=== PATIENT | male | born 1955 | race Caucasian/White ===

== ENCOUNTER 2017-09-02 11:55 | Emergency (ER) | payer SELFPAY ==
[~2017-09-02] VITALS: Ht 198.1 cm; Wt 100.0 kg
[2017-09-02 14:42] LABS: BASOPHILS # (AUTO) 0.02 x10^3/uL (0-0.1); BASOPHILS % (AUTO) 0 % (0-1); EOSINOPHILS # (AUTO) 0.16 x10^3/uL (0-0.4); EOSINOPHILS % (AUTO) 2 % (1-7); LYMPHOCYTES # (AUTO) 1.37 x10^3/uL (1-3.4); LYMPHOCYTES % (AUTO) 16 % (22-44); MD NO; MEAN CORPUSCULAR HEMOGLOBIN 31.1 pg (27.5-34.5); MEAN CORPUSCULAR HGB CONC 33.5 g/dL (33.2-36.2); MEAN CORPUSCULAR VOLUME 92.8 fL (81-97); MONOCYTES # (AUTO) 0.48 x10^3/uL (0.2-0.8); MONOCYTES % (AUTO) 6 % (2-9); NEUTROPHILS % (AUTO) 76 % (42-75); PLATELET COUNT 371 x10^3/uL (130-400); RED BLOOD COUNT 4.51 x10^6/uL (4.38-5.82); RED CELL DISTRIBUTION WIDTH 13.5 % (9.4-14.8)
[2017-09-02 14:55] LABS: ALANINE AMINOTRANSFERASE 21 U/L (12-78); ALBUMIN 3.4 g/dL (3.4-5.0); ANION GAP 6 mmol/L (5-15); CALCIUM 8.3 mg/dL (8.5-10.1); CHLORIDE 107 mmol/L (98-107); CREATININE 1.49 mg/dL (0.7-1.3)
[2017-09-02 15:00] LABS: ALKALINE PHOSPHATASE 90 U/L (45-117); BILIRUBIN,TOTAL 0.2 mg/dL (0.2-1.0); TOTAL PROTEIN 6.8 g/dL (6.4-8.2); TROPONIN I < 0.015 ng/mL (0.000-0.045)
[2017-09-02 15:05] LABS: INTERNATIONAL NORMALIZED RATIO 0.99 (0.93-1.1); PROTHROMBIN TIME 10.3 Seconds (9.6-11.5)
[2017-09-02 15:07] VITALS: BP 138/88
[2017-09-02 15:25] LABS: MICROSCOPIC NOT IND
[2017-09-02 15:32] LABS: CULTURE INDICATED? NO
[2017-09-02 15:38] LABS: AMPHETAMINE SCREEN, URINE Positive (Negative); BARBITURATE SCREEN, URINE Negative (Negative); BENZODIAZEPINE SCREEN, URINE Negative (Negative); CANNABINOID SCREEN, URINE Negative (Negative); COCAINE SCREEN, URINE Negative (Negative); METHADONE SCREEN, URINE Negative (Negative); OPIATE SCREEN, URINE Negative (Negative)
== END 2017-09-02 17:02 | disposition home or self-care (01) ==
LOC: ED 16:04
DX: R53.1 Weakness (principal); I10 Essential (primary) hypertension; Z79.899 Other long term (current) drug therapy; Z86.73 Personal history of transient ischemic attack (TIA), and cerebral infarction without residual deficits
CPT/HCPCS: 36415; 70450; 71045; 80053; 80307; 81003; 83605; 84484; 85025; 85610; 93005; 99285

== ENCOUNTER 2017-12-02 12:35 | Emergency (ER) | payer SELFPAY ==
[~2017-12-02] VITALS: Ht 198.1 cm; Wt 99.0 kg
[~2017-12-02 12:35] MED LIST: CARB200T4 PO
[2017-12-02 12:48] VITALS: BP 177/107
[2017-12-02] MEDS ORDERED: LISI-170 PO (12:54)
[2017-12-02] MEDS ORDERED: AMLO5TAB2 PO (12:54)
[2017-12-02 13:45] LABS: MEAN CORPUSCULAR HEMOGLOBIN 31.2 pg (27.5-34.5); MEAN CORPUSCULAR HGB CONC 33.8 g/dL (33.2-36.2); MEAN CORPUSCULAR VOLUME 92.3 fL (81-97); MEAN PLATELET VOLUME 7.2 fL (7.4-10.4); PLATELET COUNT 275 x10^3/uL (130-400); RED BLOOD COUNT 4.46 x10^6/uL (4.38-5.82); RED CELL DISTRIBUTION WIDTH 14.3 % (9.4-14.8)
[2017-12-02 13:46] LABS: BASOPHILS # (AUTO) 0.04 x10^3/uL (0-0.1); BASOPHILS % (AUTO) 1 % (0-1); EOSINOPHILS # (AUTO) 0.22 x10^3/uL (0-0.4); EOSINOPHILS % (AUTO) 3 % (1-7); LYMPHOCYTES # (AUTO) 1.17 x10^3/uL (1-3.4); LYMPHOCYTES % (AUTO) 16 % (22-44); MD NO; MONOCYTES # (AUTO) 0.48 x10^3/uL (0.2-0.8); MONOCYTES % (AUTO) 7 % (2-9); NEUTROPHILS # (AUTO) 5.39 x10^3/uL (1.8-6.8); NEUTROPHILS % (AUTO) 74 % (42-75)
[2017-12-02 13:55] LABS: ALBUMIN 3.9 g/dL (3.4-5.0); ANION GAP 7 mmol/L (5-15); CALCIUM 8.8 mg/dL (8.5-10.1); CHLORIDE 107 mmol/L (98-107); CREATININE 1.43 mg/dL (0.7-1.3)
== END 2017-12-02 14:38 | disposition home or self-care (01) ==
LOC: ED 14:32
DX: G40.919 Epilepsy, unspecified, intractable, without status epilepticus (principal); I10 Essential (primary) hypertension
CPT/HCPCS: 36415; 80048; 80156; 82040; 85025; 99284

== ENCOUNTER 2018-06-29 22:29 | Emergency (ER) | payer OTHER ==
[~2018-06-29] VITALS: Ht 198.1 cm; Wt 105.0 kg
[~2018-06-29 22:29] MED LIST changes: +AMLO-150 PO; +LISI-170 PO
[2018-06-29 22:37] VITALS: BP 159/100
--- NOTE | 2018-06-29 22:44 | NUR ---
HAD SEIZURE X 2 TODAY HAS HX OF SEIZURES, HAD RECENT CHANGE IN SEIZURE MEDS
[2018-06-29 22:54] LABS: BASOPHILS % (AUTO) 0 % (0-1); EOSINOPHILS # (AUTO) 0.21 x10^3/uL (0-0.4); EOSINOPHILS % (AUTO) 3 % (1-7); LYMPHOCYTES # (AUTO) 1.09 x10^3/uL (1-3.4); LYMPHOCYTES % (AUTO) 14 % (22-44); MD NO; MEAN CORPUSCULAR HEMOGLOBIN 31.2 pg (27.5-34.5); MEAN CORPUSCULAR HGB CONC 33.7 g/dL (33.2-36.2); MEAN CORPUSCULAR VOLUME 92.6 fL (81-97); MEAN PLATELET VOLUME 6.8 fL (7.4-10.4); MONOCYTES # (AUTO) 0.24 x10^3/uL (0.2-0.8); MONOCYTES % (AUTO) 3 % (2-9); NEUTROPHILS # (AUTO) 6.25 x10^3/uL (1.8-6.8); NEUTROPHILS % (AUTO) 80 % (42-75); PLATELET COUNT 335 x10^3/uL (130-400); RED BLOOD COUNT 4.41 x10^6/uL (4.38-5.82); RED CELL DISTRIBUTION WIDTH 13.4 % (9.4-14.8)
[2018-06-29] MEDS ORDERED: CARBAMAZEPINE 200 MG TABLET ONE (22:54)
[2018-06-29] MEDS ORDERED: LORazepam 2 MG/ML, 1ML ONE (22:54)
--- NOTE | 2018-06-29 22:58 | NUR ---
STATES OK FOR TEGRETOL INSTEAD OF TEGRETOL XR PER JUN.
[2018-06-29] MEDS ORDERED: CARBAMAZEPINE XR 200 MG TABLET PO ONE (23:00)
[2018-06-29] MEDS ORDERED: LORazepam 2 MG/ML, 1ML IVPush ONE (23:00)
[2018-06-29 23:05] LABS: ALBUMIN 3.9 g/dL (3.4-5.0); ANION GAP 3 mmol/L (5-15); CALCIUM 8.8 mg/dL (8.5-10.1); CHLORIDE 111 mmol/L (98-107); CREATININE 1.37 mg/dL (0.7-1.3)
== END 2018-06-29 23:29 | disposition home or self-care (01) ==
LOC: ED 23:23
DX: G40.319 Generalized idiopathic epilepsy and epileptic syndromes, intractable, without status epilepticus (principal); Z72.820 Sleep deprivation; I10 Essential (primary) hypertension; Z85.828 Personal history of other malignant neoplasm of skin
CPT/HCPCS: 36415; 80048; 80307; 82040; 85025; 93005; 96374; 99284; J2060

== ENCOUNTER 2019-07-16 17:35 | Emergency (ER) | payer MEDICARE ==
[~2019-07-16] VITALS: Ht 198.1 cm; Wt 92.9 kg
[2019-07-16 18:21] VITALS: BP 153/91
== END 2019-07-16 18:24 | disposition home or self-care (01) ==
LOC: ED 18:16
DX: R56.9 Unspecified convulsions (principal); Z76.0 Encounter for issue of repeat prescription
CPT/HCPCS: 99283

== ENCOUNTER 2019-09-28 20:56 | Emergency (ER) | payer MEDICARE, OTHER ==
[~2019-09-28] VITALS: Ht 198.1 cm; Wt 89.2 kg
--- NOTE | 2019-09-28 21:09 | NUR ---
Care assumed. Pt states he missed his PM dose of Tegretol s/t pharmacies closing early tonight. Pt denies medical complaints or concerns. States "I just need my meds tonight". Pt sitting on gurney with no s/s of acute distress. Call light in reach. Chart up for ERP eval.
--- NOTE | 2019-09-28 21:11 | NUR ---
ERP at bedside to eval.
[2019-09-28] MEDS ORDERED: CARBAMAZEPINE 200 MG TABLET ONE (21:16)
[2019-09-28] MEDS ORDERED: AMLODIPINE 5 MG TABLET ONE (21:24)
[2019-09-28] MEDS ORDERED: LISINOPRIL 10 MG TABLET ONE (21:24)
[2019-09-28] MEDS ORDERED: AMLODIPINE 5 MG TABLET PO ONE (21:30)
[2019-09-28] MEDS ORDERED: CARBAMAZEPINE 200 MG TABLET PO ONE (21:30)
[2019-09-28] MEDS ORDERED: LISINOPRIL 10 MG TABLET PO ONE (21:30)
--- NOTE | 2019-09-28 21:30 | NUR ---
Upon review of pt's BP--pt states he is also out of his BP meds until tomorrow. Pt states he takes Amlodipine 10mg and Lisinopril 10mg. Discussed with ERP and orders received. Pt medicated per JUN. Pt d/c home after meds. Ambulates with steady gait.
[2019-09-28 21:32] VITALS: BP 144/105
== END 2019-09-28 21:33 ==
LOC: ED 21:27
DX: I10 Essential (primary) hypertension (principal); R56.9 Unspecified convulsions; F17.210 Nicotine dependence, cigarettes, uncomplicated; Z85.828 Personal history of other malignant neoplasm of skin
CPT/HCPCS: 99284; 99406

== ENCOUNTER 2019-10-11 20:03 | Emergency (ER) | payer MEDICARE ==
[~2019-10-11] VITALS: Ht 198.1 cm; Wt 90.4 kg
[2019-10-11 20:07] VITALS: BP 174/109
--- NOTE | 2019-10-11 20:12 | NUR ---
no police report made pt would like to file police report here
--- NOTE | 2019-10-11 20:22 | NUR ---
[facility] NOTIFIED OF PT INTENT TO FILE REPORT, WILL SEND OFFICER. PT RESTING IN BED, BLEEDING CONTROLLED. DENIES ANY CURRENT NEEDS OR CONCERNS, CALL LIGHT IN REACH.
[2019-10-11] MEDS ORDERED: LIDOCAINE-MPF 1%, 5ML INFIL ONE (20:30)
[2019-10-11] MEDS ORDERED: DIPH,PERTUSS(ACELL),TET VAC/PF 0.5 ML IM-VACC ONE ×2 (20:30→20:35)
[2019-10-11] MEDS ORDERED: LIDOCAINE-MPF 1%, 5ML ONE (20:33)
--- NOTE | 2019-10-11 20:40 | NUR ---
[facility] AT BEDSIDE. ERT AT BEDSIDE FOR WOUND CLEANING.
[2019-10-11] MEDS ORDERED: NEOSPORIN OINT. PKT 1 PACKET ONE (21:30)
== END 2019-10-11 22:06 | disposition home or self-care (01) ==
LOC: ED 21:45
DX: S63.052A Subluxation of other carpometacarpal joint of left hand, initial encounter (principal); S50.312A Abrasion of left elbow, initial encounter; S60.512A Abrasion of left hand, initial encounter; M19.042 Primary osteoarthritis, left hand; F17.210 Nicotine dependence, cigarettes, uncomplicated; Y08.89XA Assault by other specified means, initial encounter; Y93.89 Activity, other specified; Y92.410 Unspecified street and highway as the place of occurrence of the external cause; Y99.8 Other external cause status
CPT/HCPCS: 90471; 90715; 99284; 99406

== ENCOUNTER 2019-11-05 12:23 | Emergency (ER) | payer MEDICARE ==
[~2019-11-05] VITALS: Ht 198.1 cm; Wt 88.4 kg
--- NOTE | 2019-11-05 13:21 | NUR ---
HERE FOR WOUND RECHECK ON R HAND. DENIES FEVER/REDNESS/DRAINAGE.
[2019-11-05] MEDS ORDERED: SODIUM CHLORIDE FLUSH 10ML SYR IVF PRN (14:00)
[2019-11-05 15:20] VITALS: BP 138/89
--- NOTE | 2019-11-05 15:20 | NUR ---
DC EDUCATION PROVIDED, PT DEMONSTRATES UNDERSTANDING. PT AMBULATED STEADILY TO DC WITH N
== END 2019-11-05 15:22 | disposition home or self-care (01) ==
LOC: ED 14:21
DX: M25.522 Pain in left elbow (principal); M79.632 Pain in left forearm; I10 Essential (primary) hypertension; Y08.89XA Assault by other specified means, initial encounter; Y93.89 Activity, other specified; Y92.410 Unspecified street and highway as the place of occurrence of the external cause; Y99.8 Other external cause status
CPT/HCPCS: 99284

== ENCOUNTER 2019-11-26 11:26 | Emergency (ER) | payer MEDICARE ==
[~2019-11-26] VITALS: Ht 198.1 cm; Wt 88.0 kg
[2019-11-26 11:33] VITALS: BP 126/66
--- NOTE | 2019-11-26 11:50 | NUR ---
antonio-alethea is at the bedside for assessment
[2019-11-26] MEDS ORDERED: RABIES VACCINE /PF 2.5 UNITS IM-VACC ONE (12:00)
[2019-11-26] MEDS ORDERED: RABIES IMMUNE GLOBULIN/PF 150 UNITS/ML, 2ML IM ONE ×2 (12:00→12:30)
--- NOTE | 2019-11-26 12:06 | NUR ---
pt to xr w tech x2.
--- NOTE | 2019-11-26 13:05 | NUR ---
Pt handoff report received from PERI Suarez
--- NOTE | 2019-11-26 13:16 | NUR ---
[facility]acho ([facility]) is assuming care of this pt at this time. sbar report was exchanged at the bedside.
== END 2019-11-26 13:27 | disposition home or self-care (01) ==
LOC: ED 12:17
DX: S51.851A Open bite of right forearm, initial encounter (principal); I10 Essential (primary) hypertension; Z85.828 Personal history of other malignant neoplasm of skin; W54.0XXA Bitten by dog, initial encounter; Y93.89 Activity, other specified; Y92.410 Unspecified street and highway as the place of occurrence of the external cause; Y99.8 Other external cause status
CPT/HCPCS: 90375; 90471; 90675; 96372; 99284

== ENCOUNTER 2019-11-29 20:48 | Emergency (ER) | payer MEDICARE ==
[~2019-11-29] VITALS: Ht 198.1 cm; Wt 90.3 kg
[2019-11-29 20:50] VITALS: BP 157/101
[2019-11-29] MEDS ORDERED: RABIES VACCINE /PF 2.5 UNITS IM-VACC ONE (21:30)
--- NOTE | 2019-11-29 21:50 | NUR ---
pt to room from lobby
== END 2019-11-29 22:23 | disposition home or self-care (01) ==
LOC: ED 21:00
DX: S51.851A Open bite of right forearm, initial encounter (principal); I10 Essential (primary) hypertension; F17.200 Nicotine dependence, unspecified, uncomplicated; Z85.828 Personal history of other malignant neoplasm of skin; W54.0XXA Bitten by dog, initial encounter; Y93.89 Activity, other specified; Y92.410 Unspecified street and highway as the place of occurrence of the external cause; Y99.8 Other external cause status
CPT/HCPCS: 90471; 90675; 99283

== ENCOUNTER 2020-04-03 20:40 | Emergency (ER) | payer MEDICARE ==
[~2020-04-03] VITALS: Ht 198.1 cm; Wt 89.5 kg
[2020-04-03 20:46] VITALS: BP 182/103
== END 2020-04-03 21:19 | disposition home or self-care (01) ==
LOC: ED 21:00
DX: I10 Essential (primary) hypertension (principal); Z76.0 Encounter for issue of repeat prescription
CPT/HCPCS: 99281